=== PATIENT | female | born 2000 | race Caucasian/White ===

== ENCOUNTER 2023-01-09 05:27 | Emergency (ER) | payer BC, SELFPAY ==
--- NOTE | ~2023-01-09 | US_ITS ---
EXAMINATION: US ABDOMEN LIMITED CLINICAL INFORMATION: Right upper quadrant tenderness. COMPARISON: None available. TECHNIQUE: Real-time imaging of the right upper quadrant abdominal viscera. FINDINGS: PANCREAS: The visualized portion of the pancreas head and body are normal, portion of the pancreatic body and tail, not visualized are obscured by bowel gas. LIVER: Normal. The liver is normal in size. The liver contour is normal. Parenchymal echogenicity is normal. No focal hepatic lesion. There is no intrahepatic biliary duct dilatation seen. GALLBLADDER: There are multiple gallstones. There is tenderness reported by the technologist present on the gallbladder. There is however no gallbladder wall thickening, pericholecystic fluid collection, and no dilatation of the common bile ducts, no other signs to suggest cholecystitis. COMMON BILE DUCT: Normal in caliber measuring 0.4 cm in diameter. RIGHT KIDNEY: Normal. No hydronephrosis. No renal calculi or focal parenchymal lesions. The kidney measures 10.6 cm in maximum dimension. FREE FLUID: None. US/US abdomen limited IMPRESSION: There are multiple gallstones, there is tenderness pressing on the gallbladder, however no other signs of cholecystitis, no gallbladder wall thickening, no pericholecystic fluid collection, and no dilatation of the common bile ducts. If there is clinical suspicion for possible cholecystitis, May consider correlation with follow-up HIDA scan.
[2023-01-09 05:40] VITALS: BP 154/105; PULSE 100; RESP 20; TEMP 36.6; O2SAT 98; BMI 32.3
[2023-01-09 06:25] LABS: MANUAL DIFF FLAG NO
[2023-01-09 06:28] LABS: Basophils Percent Auto 0.3 % (0-2); Eosinophils Percent Auto 0.1 % (0-4); Hematocrit 39.9 % (37.0-47.0); Hemoglobin 13.6 g/dl (12.0-16.0); Imm Gran Abs Auto 0.03 X10*3/uL (0.00-0.03); Imm Gran Pct Auto 0.2 % (0.0-0.4); Lymphocytes Absolute Auto 3.6 X10*3/uL (1.2-4.9); Lymphocytes Percent Auto 29.6 % (20-40); Mean Corpuscular HGB Conc 34.1 g/dl (31.0-35.0); Mean Corpuscular Hemoglobin 28.8 pg (27.0-33.0); Mean Corpuscular Volume 84.4 fL (80.0-98.0); Mean Platelet Volume 10.6 fL (9.4-12.3); Monocytes Percent Auto 7.9 % (2-11); Neutrophils Absolute Auto 7.5 x10*3/uL (2.0-8.3); Neutrophils Percent Auto 61.9 % (45-73); Platelet Count 275 X10*3/uL (160-400); Red Blood Count 4.73 X10*6/uL (4.20-5.50); Red Cell Distribution Width 12.5 % (11.0-16.0); White Blood Count 12.1 X10*3/uL (4.8-10.8)
[2023-01-09 06:31] LABS: Appearance Urine Clear; Color Urine Yellow; Glucose Urine UA Negative (Negative); Leukocyte Esterase Urine Negative (Negative); Nitrite Urine Negative (Negative); Specific Gravity - Urine 1.025 (1.005-1.025); Urine Blood Negative (Negative); Urine Ketones Negative (Negative); Urine Protein Negative (Neg-Trace)
[2023-01-09 06:33] LABS: UPreg QC Valid YES; Urine Pregnancy NEGATIVE (NEGATIVE)
[2023-01-09 06:48] LABS: Alanine Aminotransferase 87 U/L (0-31); Albumin Level 4.9 g/dL (3.5-5.0); Alkaline Phosphatase 72 U/L (39-117); Anion Gap 12 (12-20); Aspartate Amino Transferase 157 U/L (5-31); Bilirubin Direct 0.3 mg/dL (0.0-0.5); Bilirubin Total 0.9 mg/dL (0.0-1.0); Blood Urea Nitrogen 13 mg/dL (9-16); Calcium 10.5 mg/dL (8.4-10.2); Carbon Dioxide 26 mmol/L (22-29); Chloride 105 mmol/L (96-108); Estimated Glomerular Filt Rate > 60; Glucose Random 98 mg/dL (60-115); Lipase 16 U/L (8-78); Sodium 139 mmol/L (135-145)
[2023-01-09 07:39] VITALS: BP 178/103; PULSE 68; RESP 18; TEMP 37.1; O2SAT 99
--- NOTE | 2023-01-09 07:42 | ED_ITS ---
HPI - Abdominal Pain General Chief Complaint: Abdominal Pain Stated Complaint: stomach pain Time Seen by Provider: 01/09/23 07:32 Source: patient Mode of arrival: ambulatory Limitations: no limitations History of Present Illness HPI narrative: 22 yo female with no significant medical history presents to the ER for evaluation of epigastric pain and nausea that started at 2:30 in the morning when she woke up. She had pasta with tomato sauce for dinner last night. She states the pain radiated to her back and was worse with laying down. She was unable to sleep. She took meds for heartburn with minimal relief. She has been nauseated but no vomiting or diarrhea. No fever, chills, or urinary symptoms. MD elicited complaint: abdominal pain Onset (ago): hour(s) (6) Pain Consistency: constant Location: epigastric Severity: moderate Pain scale (0-10): 7 Quality: aching Radiation: chest Migration to: no migration Exacerbating factors: other (laying down) Relieving factors: medication Associated symptoms: nausea Treatments prior to arrival: antacids Related Data Previous Rx's Medication Instructions Recorded omeprazole 20 mg capsule,delayed 20 mg PO DAILY #14 caps 01/09/23 release Allergies Allergy/AdvReac Type Severity Reaction Status Date / Time amoxicillin Allergy Unknown Verified 01/09/23 05:39 Review of Systems Review of Systems Yes all other systems are reviewed and are negative [facility] Social History Social History Smoked in Last 30 Days: No Use of substances other than those prescribed or required for medical reasons: No Advance Directives: No Advance Directives Information Provided: Yes Physical Exam ED Vital Signs: Vital Signs - 24 hr 01/09/23 05:40 01/09/23 07:39 01/09/23 08:36 Temperature 97.8 F 98.8 F Pulse Rate 100 68 55 Respiratory Rate 20 18 16 Blood Pressure 154/105 H 178/103 H 172/110 H Pulse Oximetry 98 99 98 Oxygen Delivery Method Room Air Room Air Room Air BMI result Body Mass Index 32.3 Appearance: Alert. Oriented X3. No acute distress. Head: normocephalic, atraumatic. Eyes: Pupils equal, round and reactive to light. ENT: Pharynx normal. No tonsillar swelling or exudate. Neck: Normal inspection. Neck supple. CVS: Normal heart rate and rhythm. Pulses normal. Respiratory: No respiratory distress. Breath sounds normal. Abdomen: Soft with moderate epigastric tenderness, moderate tenderness to deep palpation of the RUQ without rebound or guarding, normal active +BS x4 Skin: Skin warm and dry. Normal skin color. Normal skin turgor. No rashes. Extremities: No lower extremity edema. No joint swelling. Neuro/psych: Oriented X 3. No motor deficit. No sensory deficit. CN II-XII intact. Normal speech and cognition. Medical Decision Making Medical Decision Making [facility] Narrative: 22-year-old female otherwise healthy presents to the ER for evaluation of acute onset of abdominal pain in the epigastric area that radiates to her back. It is associated with nausea but no vomiting. She has had no diarrhea, fever, chills. She has hurt tenderness in the epigastric area, some moderate discomfort with deep palpation of the right upper quadrant. Her LFTs and lipase are largely unremarkable and not consistent with biliary obstruction, doubt biliary etiology but will get right upper quadrant to confirm. She is worried about gallbladder issues, her mother had gallbladder issues. Ultrasound showing gallstones with no markers for acute cholecystitis. She is afebrile without vomiting and symptoms are completely resolved after GI cocktail. RUQ is nontender on re-evaluation. We discussed the findings and results. Do not feel her acute epigastric pain today was for biliary colic, impacted stone or acute cholecystitis. At this time patient is stable for d/c home - will start on PPI, we discussed dietary modifications and f/u with surgery if needed along w/ return precautions. patient agrees w/ plan Differential Diagnosis Differential Diagnoses: The differential diagnosis associated with the presentat ion includes Gastritis, GERD, acute cholecystitis, biliary colic, gallstones, gastroen teritis, costochondritis, pancreatitis Admission/Observation Consideration of admission/observation: Escalation of care including admission /observation considered Lab Data [facility] Lab Attestation statement: I reviewed the patient's lab results. unremarkable, mild leukocytosis, likely reactive 01/09/23 06:20 01/09/23 06:19 Labs: Lab Results 01/09/23 01/09/23 01/09/23 Range/Units 06:19 06:20 06:25 WBC 12.1 H (4.8-10.8) X10*3/uL RBC 4.73 (4.20-5.50) X10*6/uL Hgb 13.6 (12.0-16.0) g/dl Hct 39.9 (37.0-47.0) % MCV 84.4 (80.0-98.0) fL MCH 28.8 (27.0-33.0) pg MCHC 34.1 (31.0-35.0) g/dl RDW 12.5 (11.0-16.0) % Plt Count 275 (160-400) X10*3/uL MPV 10.6 (9.4-12.3) fL Immature Gran % (Auto) 0.2 (0.0-0.4) % Neut % (Auto) 61.9 (45-73) % Lymph % (Auto) 29.6 (20-40) % [place] % (Auto) 7.9 (2-11) % Eos % (Auto) 0.1 (0-4) % Baso % (Auto) 0.3 (0-2) % Lymph # (Auto) 3.6 (1.2-4.9) X10*3/uL [place] # (Auto) 1.0 (0.1-1.2) X10*3/uL Eos # (Auto) 0.0 (0.0-0.4) X10*3/uL Baso # (Auto) 0.0 (0.0-0.2) X10*3/uL Abs Immat Gran (auto) 0.03 (0.00-0.03) X10*3/uL Absolute Neuts (auto) 7.5 (2.0-8.3) x10*3/uL Absolute Nucleated RBC 0.000 (0.0-0.012) X10*3/uL Nucleated RBC % (auto) 0.0 (0.0-0.2) /100WBC Sodium 139 (135-145) mmol/L Potassium 4.0 (3.3-5.1) mmol/L Chloride 105 (96-108) mmol/L Carbon Dioxide 26 (22-29) mmol/L Anion Gap 12 (12-20) BUN 13 (9-16) mg/dL Creatinine 0.80 (0.5-1.4) mg/dL Estim Creat Clear Calc 123.0 Estimated GFR > 60 Random Glucose 98 (60-115) mg/dL Calcium 10.5 H (8.4-10.2) mg/dL Total Bilirubin 0.9 (0.0-1.0) mg/dL Direct Bilirubin 0.3 (0.0-0.5) mg/dL AST 157 H (5-31) U/L ALT 87 H (0-31) U/L Alkaline Phosphatase 72 (39-117) U/L Total Protein 8.0 (6.5-8.0) g/dL Albumin 4.9 (3.5-5.0) g/dL Lipase 16 (8-78) U/L Urine Color Yellow Urine Appearance Clear Urine pH 6.0 (5.0-9.0) Ur Specific [place] 1.025 (1.005-1.025) Urine Protein Negative (Neg-Trace) mg/dL Urine Glucose (UA) Negative (Negative) mg/dL Urine Ketones Negative (Negative) mg/dL Urine Blood Negative (Negative) Urine Nitrite Negative (Negative) Ur Leukocyte Esterase Negative (Negative) Urine Test (NEGATIVE) 01/09/23 Range/Units 06:25 WBC (4.8-10.8) X10*3/uL RBC (4.20-5.50) X10*6/uL Hgb (12.0-16.0) g/dl Hct (37.0-47.0) % MCV (80.0-98.0) fL MCH (27.0-33.0) pg MCHC (31.0-35.0) g/dl RDW (11.0-16.0) % Plt Count (160-400) X10*3/uL MPV (9.4-12.3) fL Immature Gran % (Auto) (0.0-0.4) % Neut % (Auto) (45-73) % Lymph % (Auto) (20-40) % [place] % (Auto) (2-11) % Eos % (Auto) (0-4) % Baso % (Auto) (0-2) % Lymph # (Auto) (1.2-4.9) X10*3/uL [place] # (Auto) (0.1-1.2) X10*3/uL Eos # (Auto) (0.0-0.4) X10*3/uL Baso # (Auto) (0.0-0.2) X10*3/uL Abs Immat Gran (auto) (0.00-0.03) X10*3/uL Absolute Neuts (auto) (2.0-8.3) x10*3/uL Absolute Nucleated RBC (0.0-0.012) X10*3/uL Nucleated RBC % (auto) (0.0-0.2) /100WBC Sodium (135-145) mmol/L Potassium (3.3-5.1) mmol/L Chloride (96-108) mmol/L Carbon Dioxide (22-29) mmol/L Anion Gap (12-20) BUN (9-16) mg/dL Creatinine (0.5-1.4) mg/dL Estim Creat Clear Calc Estimated GFR Random Glucose (60-115) mg/dL Calcium (8.4-10.2) mg/dL Total Bilirubin (0.0-1.0) mg/dL Direct Bilirubin (0.0-0.5) mg/dL AST (5-31) U/L ALT (0-31) U/L Alkaline Phosphatase (39-117) U/L Total Protein (6.5-8.0) g/dL Albumin (3.5-5.0) g/dL Lipase (8-78) U/L Urine Color Urine Appearance Urine pH (5.0-9.0) Ur Specific [place] (1.005-1.025) Urine Protein (Neg-Trace) mg/dL Urine Glucose (UA) (Negative) mg/dL Urine Ketones (Negative) mg/dL Urine Blood (Negative) Urine Nitrite (Negative) Ur Leukocyte Esterase (Negative) Urine Test NEGATIVE (NEGATIVE) Independent Interpretation I performed an independent interpretation of an: Ultrasound Interpretation: gallstones seen without pericholecystic fluid, agree w/ radiologist read Radiology Impression Discussion of test interpretation with radiology: I have reviewed the radiologi st's reading. Radiologist Impression: EXAMINATION: US ABDOMEN LIMITED CLINICAL INFORMATION: Right upper quadrant tenderness. COMPARISON: None available. TECHNIQUE: Real-time imaging of the right upper quadrant abdominal viscera. FINDINGS: PANCREAS: The visualized portion of the pancreas head and body are normal, portion of the pancreatic body and tail, not visualized are obscured by bowel gas. LIVER: Normal. The liver is normal in size. The liver contour is normal. Parenchymal echogenicity is normal. No focal hepatic lesion. There is no intrahepatic biliary duct dilatation seen. GALLBLADDER: There are multiple gallstones. There is tenderness reported by the technologist present on the gallbladder. There is however no gallbladder wall thickening, pericholecystic fluid collection, and no dilatation of the common bile ducts, no other signs to suggest cholecystitis. COMMON BILE DUCT: Normal in caliber measuring 0.4 cm in diameter. RIGHT KIDNEY: Normal. No hydronephrosis. No renal calculi or focal parenchymal lesions. The kidney measures 10.6 cm in maximum dimension. FREE FLUID: None. US/US abdomen limited IMPRESSION: There are multiple gallstones, there is tenderness pressing on the gallbladder, however no other signs of cholecystitis, no gallbladder wall thickening, no pericholecystic fluid collection, and no dilatation of the common bile ducts. ? Independent Historian Clinical information obtained from an independent historian. History obtained from or confirmed by: Friend Prescription Management I considered prescription management with: Pain Medication Medications Administered Discontinued Medications Generic Name Dose Route Start Last Admin Trade Name Horacioq PRN Reason Stop Dose Admin Al Hydroxide/Mg Hydroxide 30 ml 01/09/23 07:56 01/09/23 08:32 Magnesium Hydrox/Alum Hydrox 30 Ml Oral.Susp PO 01/09/23 07:57 30 ml ONCE ONE Administration Belladonna Alkaloids/Phenobarbital 10 ml 01/09/23 07:56 01/09/23 08:32 Phenobarb/Hyoscy/Atropine/Scop 10 Ml Elixir PO 01/09/23 07:57 10 ml ONCE ONE Administration Famotidine 20 mg 01/09/23 07:56 01/09/23 08:28 Famotidine 20 Mg Tablet PO 01/09/23 07:57 20 mg ONCE ONE Administration Lidocaine HCl 15 ml 01/09/23 07:56 01/09/23 08:29 Lidocaine Hcl Viscous 2 % 15 Ml Solution MUCOUS MEM 01/09/23 07:57 15 ml ONCE ONE Administration Discharge Plan Discharge Clinical Impression: Gastritis, Gallstones Patient Disposition: Home, Self-Care Instructions: Gastritis (DC), Gallstones (ED), Diet for Stomach Ulcers and Gastritis (ED) Additional Instructions: Your lab workup today was unremarkable. Your pain is most likely due to gastritis which is and irritation and inflammation of your stomach lining. Start taking the prescribed medication as directed for this. Stick to a bland diet. Avoid foods high in acid, avoid alcohol and NSAID medications like Aleve, Motrin, Advil or ibuprofen. Your ultrasound showed you have gallstones but no evidence of gallbladder infection. Follow up with the below general surgeon if you symptoms persist despite dietary modifications and medication. If you develop new or worsening symptoms call 911 or come back to the ER for further evaluation. Prescriptions: New omeprazole 20 mg capsule,delayed release(DR/EC) 20 mg PO DAILY Qty: 14 0RF Referrals: [facility] [Provider Group] (gallstones)
--- OUTSIDE RECORDS SUMMARY | 2023-01-09 07:49 | XMS_ITS | Continuity of Care Document ---
Author Name Unknown Organization [facility] Address [address] [place] [address]- Care Team Providers Care Coating Technician Name Role Phone Not on Staff, PCP Primary Care Physician Unavail able Encounter [facility] [place] [place] Date(s): 04/09/21 - 05/09/21 [facility] [address] [place] [address]- Attending Physician: Kathryn Johnston Admitting Physician: Kathryn Johnston Referring Physician: [id number] [id number] Allergies, Adverse Reactions, Alerts Substance Reaction Severity Status amoxicillin Active Medications Lexapro 10 mg oral tablet 1 tablet = 10 mg, By Mouth, Daily, 0 Refills, Maintenance, 04/09/21 11:46:00 EDT, Partial fill uponpatient request if the prescription is for a schedule II opioid drug. Start Date: 04/09/21 Status: Ordered Social History Social History Type Response Smoking Status 10 or more cigarette s (1/2 pack or more)/day in last 30 days entered on: 04/09/21 Sex
[2023-01-09] MEDS: Famotidine 20 MG TABLET PO (08:28)
[2023-01-09] MEDS: Lidocaine HCl Viscous 2 % 15 ML SOLUTION MUCOUS MEM (08:29)
[2023-01-09] MEDS: PHENobarb/Hyoscy/Atropine/Scop 10 ML ELIXIR PO (08:32)
[2023-01-09] MEDS: Magnesium Hydrox/Alum Hydrox 30 ML ORAL.SUSP PO (08:32)
[2023-01-09 08:36] VITALS: BP 172/110; PULSE 55; RESP 16; O2SAT 98
--- NOTE | 2023-01-09 09:45 | PC.NURSE ---
pt a&o x4, pleasant, calm, and cooperative. medicated per nov. resting quietly on stretcher, in no apparent distress. wctm
== END 2023-01-09 11:43 | disposition home or self-care (01) ==
PROVIDERS: Emergency Provider Emergency Medicine
DX: K29.70 Gastritis, unspecified, without bleeding (principal); K80.20 Calculus of gallbladder without cholecystitis without obstruction; Z79.899 Other long term (current) drug therapy
CPT/HCPCS: 36415; 76705; 80053; 81003; 81025; 82248; 83690; 85025; 99284